=== PATIENT | male | born 1950 | race Caucasian/White ===

== ENCOUNTER 2025-06-08 19:54 | Emergency (ER) | payer OTHER ==
[~2025-06-08] VITALS: Ht 171.4 cm; Wt 77.3 kg
[2025-06-08 21:06] LABS: PLATELET COUNT (AUTO) 196 K/uL (150-450); RED BLOOD CELL COUNT(AUTO) 4.88 MIL/uL (4.50-5.90); RED CELL DISTRIBUTION WIDTH 12.7 % (11.5-14.5); WHITE BLOOD COUNT (AUTO) 9.3 K/uL (4.5-11.0)
[2025-06-08 21:07] VITALS: TEMP 98.7
[2025-06-08 21:12] LABS: CALCIUM, TOTAL 10.2 mg/dL (8.8-10.5); CREATININE 1.54 mg/dL (0.60-1.30); GLOMERULAR FILTR. RATE CALC 44.0 mL/min (>60); GLUCOSE,RANDOM 112.0 mg/dL (70-110); SODIUM SERUM 143.0 mmol/L (136-145); UREA NITROGEN, BLOOD 24.0 mg/dL (7-18)
[2025-06-08 22:42] LABS: COVID AG,FIA SOURCE NASAL SWAB
[2025-06-08 23:02] LABS: SARS-COV2 (COVID) ANTIGEN,FIA Negative (Negative)
[2025-06-09 06:39] VITALS: BP 119/79; PULSE 71; RESP 15; O2SAT 97
== END 2025-06-09 11:28 | disposition home or self-care (01) ==
LOC: EMS 19:58
DX: R41.0 Disorientation, unspecified (principal); F03.90 Unspecified dementia, unspecified severity, without behavioral disturbance, psychotic disturbance, mood disturbance, and anxiety; Z20.822 Contact with and (suspected) exposure to COVID-19
CPT/HCPCS: 99285; 87426; 80048; 85025; 36415; G0480